=== PATIENT | male | born 1960 | race Hispanic/Latino ===

== ENCOUNTER 2019-10-10 11:04 | Emergency (ER) | payer OTHER, BC, SELFPAY ==
[2019-10-10 11:08] VITALS: BP 125/86; PULSE 107; RESP 14; TEMP 36.6; O2SAT 95
[2019-10-10] MEDS: TETANUS,DIPHTHERIA,AC PERTUSSIS ADULT (0.5 ML) BOOSTRIX IM (11:55)
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
[2019-10-10] MEDS: IBUPROFEN 600 MG TABLET PO (13:21)
== END 2019-10-10 13:22 | disposition home or self-care (01) ==
PROVIDERS: Emergency Provider Emergency Medicine
DX: S01.81XA Laceration without foreign body of other part of head, initial encounter (principal); V48.5XXA Car driver injured in noncollision transport accident in traffic accident, initial encounter; Z23 Encounter for immunization
CPT/HCPCS: 12011; 90471; 90715; 99282; A9270